=== PATIENT | male | born 1985 | race African-American/Black ===

== ENCOUNTER 2017-03-19 11:30 | Emergency (ER) | payer OTHER ==
[~2017-03-19] VITALS: Ht 177.8 cm; Wt 89.0 kg
[2017-03-19] MEDS ORDERED: ACETAMINOPHEN 325 MG TAB PO ONE (13:45)
[2017-03-19] MEDS ORDERED: METOCLOPRAMIDE 10 MG TAB PO ONE (13:45)
--- NOTE | 2017-03-19 14:32 | REP ---
CT Head without contrast HISTORY: Trauma COMPARISON: None A small area of decreased attenuation is present in the medial right frontal lobe. This represents encephalomalacia. There is no intraparenchymal hemorrhage, acute infarct, mass or midline shift. The ventricular system is normal in appearance. There is no extra cerebral collection. There is no fracture. The visualized sinuses are clear. IMPRESSION: Small area of right frontal lobe encephalomalacia. Signed by Julius Magdaleno MD 03/19/2017 02:24 P
--- NOTE | 2017-03-19 14:35 | REP ---
CT cervical spine without contrast HISTORY: Trauma COMPARISON: None There is no acute fracture or subluxation. There is no disc bulge or herniation. The spinal canal and neural foramina are patent. A subchondral cyst is present in the C6 vertebral body. The intervertebral discs and vertebral bodies are normal in height. IMPRESSION: There is no acute fracture or subluxation. Signed by Julius Magdaleno MD 03/19/2017 02:27 P
[2017-03-19] MEDS ORDERED: MOBI4TAB PO (14:41)
[2017-03-19] MEDS ORDERED: ZANA4TAB PO (14:41)
[2017-03-19 14:46] VITALS: BP 135/76
--- NOTE | 2017-03-19 14:47 | REP ---
LUMBAR SPINE, FIVE VIEWS: HISTORY: Trauma. There is no acute fracture or subluxation. The L3-4 and L4-5 intervertebral discs are decreased in height consistent with disc degeneration. An osteophyte is present on L5. The facet joints are normal in appearance. IMPRESSION: There is no acute fracture or subluxation. Signed by Julius Magdaleno MD 03/19/2017 04:47 P
--- NOTE | 2017-03-19 14:48 | REP ---
RIGHT HIP, PELVIS, THREE VIEWS: HISTORY: Trauma. The patient is status post ORIF of a right femoral neck fracture. Three metal screws are present. There is no acute fracture or dislocation. The joint space is normal in appearance. IMPRESSION: There is no acute fracture or dislocation. Signed by Julius Magdaleno MD 03/19/2017 04:47 P
== END 2017-03-19 14:47 | disposition home or self-care (01) ==
LOC: M ED 11:30
DX: M54.5 Low back pain (principal); M54.2 Cervicalgia; R51 Headache; M25.551 Pain in right hip; V49.50XA Passenger injured in collision with unspecified motor vehicles in traffic accident, initial encounter; Y92.410 Unspecified street and highway as the place of occurrence of the external cause; Y93.89 Activity, other specified; Y99.8 Other external cause status